=== PATIENT | female | born 1990 | race Caucasian/White ===

== ENCOUNTER 2016-12-16 11:24 | Emergency (ER) | payer MEDICAID ==
[~2016-12-16] VITALS: Ht 154.9 cm; Wt 64.0 kg
[~2016-12-16 11:24] MED LIST: PREN-39 PO; PREN1TAB49 PO
[2016-12-16 11:26] VITALS: Ht 154.9 cm; Wt 64.0 kg
[2016-12-16] MEDS ORDERED: KETOROLAC 60 MG INJ IM STA (13:17)
[2016-12-16 13:39] LABS: URINE BLOOD (Dip) POC Trace-intact (NEGATIVE)
[2016-12-16] MEDS ORDERED: NAPR-260 PO (13:46)
[2016-12-16] MEDS ORDERED: CYCL-319 PO (13:46)
[2016-12-16] MEDS ORDERED: HYDR-906 PO (13:46)
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
[2016-12-16 13:52] VITALS: BP 122/76; PULSE 70; RESP 16
== END 2016-12-16 13:56 | disposition home or self-care (01) ==
LOC: FTE 11:24
DX: M54.2 Cervicalgia (principal); Z04.1 Encounter for examination and observation following transport accident
CPT/HCPCS: 81003; 96372; J1885; Z7502

== ENCOUNTER 2019-01-11 08:38 | Emergency (ER) | payer SELFPAY ==
[~2019-01-11] VITALS: Wt 77.7 kg
[~2019-01-11 08:38] MED LIST changes: +CYCL10TA7 PO; +HYDR-4011 PO; +NAPR-985 PO
[2019-01-11 08:42] VITALS: BP 121/58; PULSE 100; RESP 18
[2019-01-11] MEDS ORDERED: NITR-58 PO (10:10)
[2019-01-11] MEDS ORDERED: ACET325T33 PO (10:10)
--- NOTE | 2019-01-11 13:44 | ERD ---
ER Documentation Chief Complaint Chief Complaint vag spotting and cramping for the past 2 days., recent pos hcg HPI 28-year-old female presenting with vaginal spotting and cramping for the last 2 days. Patient took a test yesterday which was positive. LNMP December 02. G4, . No OB for this . Patient has not had an ultrasound this . Patient is not having lateralized pain but feels that there is a cramping sensation inside her uterus. Patient denies medical problems. NKDA. Surgical history of LEEP procedure for HPV. Social history denies ROS All systems reviewed and are negative except as per history of present illness. Medications Home Meds Active Scripts Acetaminophen* (Tylenol*) 325 Mg Tablet, 2 TAB PO Q8 PRN for PAIN AND OR EL EVATED TEMP, #20 TAB Prov:MONICA BELL PA-C 01/11/19 Nitrofurantoin Monohyd Macrocr* (Macrobid*) 100 Mg Capsr, 100 MG PO BID for 14 Days, CAP Prov:MONICA BELL PA-C 01/11/19 Hydrocodone/Acetaminophen ([place] 5-325 Tablet) 1 Each Tablet, 1 TAB PO Q6H PRN for PAIN, #20 TAB Prov:PREETHI RANDALL PA-C 12/16/16 Naproxen* (Naprosyn*) 500 Mg Tablet, 500 MG PO BID PRN for PAIN AND/OR INFLAMMATION, #30 TAB Prov:PREETHI RANDALL PA-C 12/16/16 Cyclobenzaprine Hcl* (Cyclobenzaprine Hcl*) 10 Mg Tablet, 10 MG PO BID, #20 TAB Prov:PREETHI RANDALL PA-C 12/16/16 Reported Medications Vits W-Ca,Fe,Fa(<1MG) ( Vitamins) 1 Tab Tablet, 1 TAB PO DAILY 05/13/11 Vits W-Ca,Fe,Fa(<1MG) () 1 Tab Tablet, 1 PO DAILY 03/26/11 Allergies Allergies: Coded Allergies: No Known Allergy (Verified Allergy, Unknown, 03/26/11) PMhx/Soc Medical and Surgical Hx: pt denies Medical Hx, pt denies Surgical Hx Hx Alcohol Use: No Hx Substance Use: No Hx Tobacco Use: No FmHx Family History: No diabetes, No coronary disease, No other Physical Exam Vitals Vital Signs Date Temp Pulse Resp B/P (MAP) Pulse Ox O2 O2 Flow FiO2 Time Delivery Rate 01/11/19 98.6 100 18 121/58 98 08:42 (79) Physical Exam GENERAL: The patient is well-appearing, well-nourished, in no acute distress HEENT: Atraumatic. Conjunctivae are pink. Pupils equal, round, and reactive to light. There is no scleral icterus. Tympanic membranes clear bilaterally. Oropharynx clear. CHEST: Clear to auscultation bilaterally. There are no rales, wheezes or rhonchi. HEART: Regular rate and rhythm. No murmurs, clicks, rubs or gallops. ABDOMEN: Normal active bowel sounds. No distention. No organomegaly. Mild test palpation to the right pelvis with no rebound tenderness. Result Diagram: 01/11/19912 Results 24 hrs Laboratory Tests Test 01/11/19 09:13 01/11/19 09:15 White Blood Count 9.5 10^3/ul Red Blood Count 4.33 10^6/ul Hemoglobin 13.1 g/dl Hematocrit 39.1 % Mean Corpuscular Volume 90.3 fl Mean Corpuscular Hemoglobin 30.3 pg Mean Corpuscular Hemoglobin Concent 33.5 g/dl Red Cell Distribution Width 13.2 % Platelet Count 291 10^3/UL Mean Platelet Volume 9.3 fl Immature Granulocytes % 0.800 % Neutrophils % 65.6 % Lymphocytes % 24.8 % Monocytes % 6.9 % Eosinophils % 1.4 % Basophils % 0.5 % Nucleated Red Blood Cells % 0.0 /100WBC Immature Granulocytes # 0.080 10^3/ul Neutrophils # 6.2 10^3/ul Lymphocytes # 2.4 10^3/ul Monocytes # 0.7 10^3/ul Eosinophils # 0.1 10^3/ul Basophils # 0.1 10^3/ul Nucleated Red Blood Cells # 0.0 10^3/ul Beta HCG, Quantitative 4746.3 mIU/ml Urine Color YELLOW Urine Clarity CLOUDY Urine pH 7.0 Urine Specific [place] 1.024 Urine Ketones NEGATIVE mg/dL Urine Nitrite NEGATIVE mg/dL Urine Bilirubin NEGATIVE mg/dL Urine Urobilinogen NEGATIVE mg/dL Urine Leukocyte Esterase 3+ Gala/ul Urine Microscopic RBC 1 /HPF Urine Microscopic WBC 6 /HPF Urine Squamous Epithelial Cells MANY /HPF Urine Amorphous Crystals FEW /HPF Urine Mucus FEW /HPF Urine Hemoglobin 2+ mg/dL Urine Glucose NEGATIVE mg/dL Urine Total Protein NEGATIVE mg/dl Procedures/MDM DIAGNOSTIC IMAGING REPORT Patient: DELANEY MIRELES : 1990 Age: 28 Sex: F MR #: [id number] DOS: 01/11/19 0905 Ordering MD: ARIELLA BELL PA-C Location: E Room/Bed: PROCEDURE: US Pelvis/OB. CLINICAL INDICATION: vaginal bleeding TECHNIQUE: Multiple sonographic images of the pelvis were obtained utilizing a transabdominal and endovaginal technique. The images were reviewed on a PACS workstation. COMPARISON: None. FINDINGS: There is a small cystic structure within the endometrium measuring 0.65 cm which would correspond to a calculated gestational age of 5 weeks and 1 day. No pole is yet visualized. There is a yolk sac seen. There is no Doppler flow in the ovaries. The right ovary measures 4.1 x 2.2 x 2.6 cm. There is a 2.1 cm corpus luteum cyst in the right ovary. The left ovary measures 2.8 x 1.7 x 2.0 cm. No significant free fluid is present within the pelvis. RPTAT: AA IMPRESSION: Probable early intrauterine at 5 weeks and 1 day. No pole is yet visualized Close followup ultrasound and hCG is recommended. Right ovarian corpus luteum cyst. MDM: 28-year-old female stenting with pelvic pain. I have low suspicion for ectopic however cannot be completely excluded at this time is incomplete is noted on ultrasound. Patient is recommended to return in 2 days for reevaluation. Patient is not having heavy bleeding at this time so have low suspicion for miscarriage however recommend patient to take antibiotics for urinary tract infection. I have low suspicion for pyelonephritis. Patient is Rh+ and does not require RhoGam at this time. Patient is told symptoms change or worsen to return immediately to the ER. All questions answered at discharge Departure Diagnosis: Primary Impression: UTI (urinary tract infection) Additional Impression: Ovarian cyst Condition: Stable Patient Instructions: Understanding Urinary Tract Infections (UTIs), Ovarian Cyst Referrals: COMM[facility]ITY CL[facility] YOU HAVE RECEIVED A MEDICAL SCREENING EXAM AND THE RESULTS INDICATE THAT YOU DO NOT HAVE A CONDITION THAT REQUIRES URGENT TREATMENT IN THE EMERGENCY DEPARTMENT. FURTHER EVALUATION AND TREATMENT OF YOUR CONDITION CAN WAIT UNTIL YOU ARE SEEN IN YOUR DOCTORS OFFICE WITHIN THE NEXT 1-2 DAYS. IT IS YOUR RESPONSIBILITY TO MAKE AN APPOINTMENT FOR FOLOW-UP CARE. IF YOU HAVE A PRIMARY DOCTOR --you should call your primary doctor and schedule an appointment IF YOU DO NOT HAVE A PRIMARY DOCTOR YOU CAN CALL OUR PHYSICIAN REFERRAL HOTLINE AT IF YOU CAN NOT AFFORD TO SEE A PHYSICIAN YOU CAN CHOSE FROM THE FOLLOWING [facility] CLINICS [facility] [address] [facility] [address] [facility] [facility] [address] [facility] [address] [facility] [address] [facility] [facility] [address] Additional Instructions: FOLLOW UP WITH YOUR PRIMARY CARE PHYSICIAN TOMORROW.Return to this facility if you are not improving as expected. MONICA BELL PA-C Jan 11, 2019 13:44
== END 2019-01-11 10:29 | disposition home or self-care (01) ==
LOC: FTE 08:38
DX: O23.41 Unspecified infection of urinary tract in pregnancy, first trimester (principal); O34.81 Maternal care for other abnormalities of pelvic organs, first trimester; R10.2 Pelvic and perineal pain; Z3A.01 Less than 8 weeks gestation of pregnancy
CPT/HCPCS: 76801; 76817; 81001; 84702; 85025; 86900; 86901

== ENCOUNTER 2019-01-25 16:40 | Emergency (ER) | payer MEDICAID ==
[~2019-01-25] VITALS: Ht 160 cm; Wt 77.7 kg
[~2019-01-25 16:40] MED LIST changes: +ACET325T33 PO; +NITR-58 PO
[2019-01-25 17:04] VITALS: Ht 160 cm; Wt 77.7 kg
--- NOTE | 2019-01-25 18:35 | ERD ---
ER Documentation Chief Complaint Chief Complaint vag bleeding LMP 12/02/18 vaginal bleeding x7days HPI 28-year-old female, A1 with EGA 7 weeks by LMP 12/02/2018, presents to the emergency department, complaining of 7 days with mild vaginal spotting, associated with cramping pelvic pain. No reports of fever or chills, no rashes. The patient has established care at [facility]. ROS All systems reviewed and are negative except as per history of present illness. Medications Home Meds Active Scripts Acetaminophen* (Tylenol*) 325 Mg Tablet, 2 TAB PO Q8 PRN for PAIN AND OR ELEVATED TEMP, #20 TAB Prov:MONICA BELL PA-C 01/11/19 Nitrofurantoin Monohyd Macrocr* (Macrobid*) 100 Mg Capsr, 100 MG PO BID for 14 Days, CAP Prov:MONICA BELL PA-C 01/11/19 Hydrocodone/Acetaminophen ([place] 5-325 Tablet) 1 Each Tablet, 1 TAB PO Q6H PRN for PAIN, #20 TAB Prov:PREETHI RANDALL PA-C 12/16/16 Naproxen* (Naprosyn*) 500 Mg Tablet, 500 MG PO BID PRN for PAIN AND/OR INFLAMMATION, #30 TAB Prov:PREETHI RANDALL PA-C 12/16/16 Cyclobenzaprine Hcl* (Cyclobenzaprine Hcl*) 10 Mg Tablet, 10 MG PO BID, #20 TAB Prov:PREETHI RANDALL PA-C 12/16/16 Reported Medications Vits W-Ca,Fe,Fa(<1MG) ( Vitamins) 1 Tab Tablet, 1 TAB PO DAILY 05/13/11 Vits W-Ca,Fe,Fa(<1MG) () 1 Tab Tablet, 1 PO DAILY 03/26/11 Allergies Allergies: Coded Allergies: No Known Allergy (Verified Allergy, Unknown, 03/26/11) PMhx/Soc Medical and Surgical Hx: pt denies Medical Hx, pt denies Surgical Hx Hx Alcohol Use: No Hx Substance Use: No Hx Tobacco Use: No Smoking Status: Never smoker FmHx Family History: No diabetes, No coronary disease Physical Exam Vitals Vital Signs Date Temp Pulse Resp B/P (MAP) Pulse Ox O2 O2 Flow FiO2 Time Delivery Rate 01/25/19 99.2 78 18 103/67 97 17:04 (79) Physical Exam Const: No acute distress Head: Atraumatic Eyes: Normal Conjunctiva ENT: Normal External Ears, Nose and Mouth. Neck: Full range of motion. No meningismus. Resp: Clear to auscultation bilaterally Cardio: Regular rate and rhythm, no murmurs Abd: Soft, non tender, non distended. Normal bowel sounds Skin: No petechiae or rashes Back: No midline or flank tenderness Ext: No cyanosis, or edema Neur: Awake and alert Psych: Normal Mood and Affect Result Diagram: 01/25/191922 Results 24 hrs Laboratory Tests Test 01/25/19 19:23 White Blood Count 13.0 10^3/ul Red Blood Count 4.14 10^6/ul Hemoglobin 12.6 g/dl Hematocrit 37.7 % Mean Corpuscular Volume 91.1 fl Mean Corpuscular Hemoglobin 30.4 pg Mean Corpuscular Hemoglobin Concent 33.4 g/dl Red Cell Distribution Width 12.9 % Platelet Count 265 10^3/UL Mean Platelet Volume 9.4 fl Immature Granulocytes % 0.600 % Neutrophils % 60.8 % Lymphocytes % 26.8 % Monocytes % 8.9 % Eosinophils % 2.4 % Basophils % 0.5 % Nucleated Red Blood Cells % 0.0 /100WBC Immature Granulocytes # 0.080 10^3/ul Neutrophils # 7.9 10^3/ul Lymphocytes # 3.5 10^3/ul Monocytes # 1.2 10^3/ul Eosinophils # 0.3 10^3/ul Basophils # 0.1 10^3/ul Nucleated Red Blood Cells # 0.0 10^3/ul Urine Color YELLOW Urine Clarity SLIGHTLY CLOUDY Urine pH 5.0 Urine Specific [place] 1.028 Urine Ketones NEGATIVE mg/dL Urine Nitrite NEGATIVE mg/dL Urine Bilirubin NEGATIVE mg/dL Urine Urobilinogen NEGATIVE mg/dL Urine Leukocyte Esterase 2+ Gala/ul Urine Microscopic RBC 3 /HPF Urine Microscopic WBC 18 /HPF Urine Squamous Epithelial Cells FEW /HPF Urine Bacteria FEW /HPF Urine Mucus MANY /HPF Urine Hemoglobin 1+ mg/dL Urine Glucose NEGATIVE mg/dL Urine Total Protein NEGATIVE mg/dl Beta HCG, Quantitative 80836.0 mIU/ml Procedures/MDM Vital signs stable, Physical exam unremarkable. Differential diagnosis include but not limited to: UTI, threatening , incomplete versus complete , ectopic , physiologic implantation bleeding, molar . Physical examination and clinical presentation most likely consistent with threatening and urinary tract infection, without evidence of pyelonephritis. During the ED course the patient remained hemodynamically stable and asymptomati c. Results and clinical impression discussed with patient who agrees with management. The patient is stable to be treated outpatient and will be discharged home with close monitoring and follow-up in 2 days with her primary physician. Bed rest and pelvic rest recommended until further medical ev aluation. The patient was instructed regarding the outcomes and the potential complications like severe bleeding and . If the patient presents severe bleeding or pain, she was instructed to return to the hospital immediately. Disclaimer: Inadvertent spelling and grammatical errors are likely due to EHR/dictation software use and do not reflect on the overall quality of patient care. Also, please note that the electronic time recorded on this note does not necessarily reflect the actual time of the patient encounter. Departure Diagnosis: Primary Impression: Vaginal bleeding in patient at less than 20 weeks gestation Additional Impression: UTI (urinary tract infection) Condition: Stable Patient Instructions: Bleeding During Early , Understanding Urinary Tract Infections (UTIs) Additional Instructions: Thank you very much for allowing us to participate in your care. Your health and safety is our top priority at [facility]. The evaluation in the emergency department has been done to rule out an acute emergency. Chronic, [id number] conditions may have not been evaluated; therefore, you need to follow up with a primary care provider in the next 48h. If symptoms persist, worsen or new symptoms develop, then patient should return to the ED immediately. Call your primary care doctor TOMORROW for an appointment during the next 2-4 days and bring all the information provided. Have prescriptions filled and follow precisely the directions on the label. If the symptoms get worse and your provider is unavailable, return to the Emergency Department immediately. BROOKLYN KELLEY MD Jan 25, 2019 18:35
[2019-01-25] MEDS ORDERED: CEPH-443 PO (21:05)
[2019-01-25 21:17] VITALS: BP 103/70; PULSE 68; RESP 18
== END 2019-01-25 21:18 | disposition home or self-care (01) ==
LOC: FTE 16:40
DX: O20.9 Hemorrhage in early pregnancy, unspecified (principal); O23.41 Unspecified infection of urinary tract in pregnancy, first trimester; Z3A.01 Less than 8 weeks gestation of pregnancy
CPT/HCPCS: 36415; 76801; 76817; 81001; 84702; 85025; Z7502

== ENCOUNTER 2019-04-08 17:18 | Emergency (ER) | payer MEDICAID ==
[~2019-04-08] VITALS: Ht 154.9 cm; Wt 80.0 kg
[~2019-04-08 17:18] MED LIST changes: +CEPH-443 PO
[2019-04-08 17:41] VITALS: BP 120/81; PULSE 77; RESP 18; Ht 154.9 cm; Wt 80.0 kg
[2019-04-08] MEDS ORDERED: ACETAMINOPHEN 325 MG TAB PO STA (17:58)
== END 2019-04-08 20:11 | disposition home or self-care (01) ==
LOC: FTE 17:18
DX: O20.9 Hemorrhage in early pregnancy, unspecified (principal); R10.2 Pelvic and perineal pain; Z3A.18 18 weeks gestation of pregnancy
CPT/HCPCS: 36415; 76805; 81001; 84702; 85025; 86900; 86901; Z7502; Z7610